=== PATIENT | female | born 2000 | race Two or more races ===

== ENCOUNTER 2024-12-24 00:39 | Emergency (ER) | payer MEDICAID, SELFPAY ==
[2024-12-24 00:41] VITALS: BP 154/98; PULSE 129; RESP 19; TEMP 36.9; O2SAT 100; BMI 29.2
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
== END 2024-12-24 01:15 ==
LOC: SERX 01:13
PROVIDERS: Emergency Provider Emergency Medicine
DX: Z02.89 Encounter for other administrative examinations (principal)
CPT/HCPCS: 99281